=== PATIENT | female | born 1965 | race Caucasian/White ===

== ENCOUNTER 2021-04-26 08:43 | Emergency (ER) | payer BC ==
[~2021-04-26] VITALS: Ht 172.7 cm; Wt 90.0 kg
--- NOTE | 2021-04-26 08:57 | PHYS DOC ---
Past Medical History Past Medical History: No Pertinent History Past Surgical History: No Surgical History Smoking Status: Current Every Day Smoker Alcohol Use: None Drug Use: None General Adult EDM: Chief Complaint: dizzy and soa HPI: HPI: This is a pleasant 55-year-old female who presents emergency department today feeling dizziness for the past 3 days and shortness of breath. She describes her dizziness as a lightheadedness and not vertiginous. Its worse when she moves her head. It is worse when she walks around. She describes her shortness of breath as intermittent and currently her shortness of breath has resolved. She was feeling more short of breath earlier before paramedics had come. She denies unilateral leg swelling or hemoptysis. She denies chest pain. Review of systems negative for neck pain abdominal pain vomiting diaphoresis fevers chills or nuchal rigidity. All other review of systems negative Heart Score: C/O Chest Pain: No Risk Factors: Risk Factors: DM, Current or recent (<one month) smoker, HTN, HLP, family history of CAD, obesity. Risk Scores: Score 0 - 3: 2.5% MACE over next 6 weeks - Discharge Home Score 4 - 6: 20.3% MACE over next 6 weeks - Admit for Clinical Observation Score 7 - 10: 72.7% MACE over next 6 weeks - Early Invasive Strategies Physical Exam: PE: Constitutional: Well developed, well nourished, no acute distress, non-toxic appearance. [] HENT: Normocephalic, atraumatic, bilateral external ears normal, oropharynx moist, no oral exudates, nose normal. [] Eyes: PERRLA, EOMI, conjunctiva normal, no discharge. [] Neck: Normal range of motion, no tenderness, supple, no stridor. [] Cardiovascular:Heart rate regular rhythm, no murmur [] Lungs & Thorax: Bilateral breath sounds clear to auscultation [] no wheezing or crackles. Abdomen: Bowel sounds normal, soft, no tenderness, no masses, no pulsatile masses. [] Skin: Warm, dry, no erythema, no rash. [] Back: No tenderness, no CVA tenderness. [] Extremities: No tenderness, no cyanosis, no clubbing, ROM intact, no edema. [] Neurologic: Mental status: Awake oriented and alert x3 Cranial nerves: Extraocular movements intact, eyebrows pham bilaterally, smile symmetric, uvula elevation nl, shoulder shrug intact bilaterally, tongue protr usion normal. pt has some lateral rotatory nystagmus. No vertical nystagmus. Clear speech. Normal [id number]. Sensation: equal and normal in all extremities Strength: 5/5 in upper and lower extremities bilaterally Psychologic: Affect normal, judgement normal, mood normal. [] EKG: EKG: [] EKG shows sinus rhythm with a regular rate. ST segments show T wave inversions in the high lateral leads. There is mild less than 1 mm elevation in the anterior leads without reciprocal depression. Does not meet STEMI criteria. Nonspecific repolarization abnormalities. ST segment morphology is upwards and concavity. No previous available for comparison. Radiology/Procedures: Radiology/Procedures: [] Course & Med Decision Making: Course & Med Decision Making Pertinent Labs and Imaging studies reviewed. (See chart for details) []blood work had to be sent 2-3 times. on reevaluation pt continues to be dizzy, pt given ativan and zofran. Patient was able to ambulate to the bathroom without any assistance and with a steady normal gait. Blood work is largely unremarkable other than a bilirubin just above the reference range of normal. Head CT and chest x-ray unremarkable. Urinalysis shows dehydration. The patient got IV fluids here in the emergency room. Will encourage her to take oral fluids at home and follow-up with her doctor in 1 to 2 days. Ellen Disclaimer: Ellen Disclaimer: This electronic medical record was generated, in whole or in part, using a voice recognition dictation system. Departure Departure Impression: Primary Impression: Dizzy Disposition: 01 HOME / SELF CARE / HOMELESS Condition: STABLE Patient Instructions: Dizziness Additional Instructions: EMERGENCY DEPARTMENT GENERAL DISCHARGE INSTRUCTIONS Follow-up with your primary physician in 1 to 2 days. Return to the emergency department if you have any new or concerning findings. Thank you for coming to [facility] Emergency Department (ED) today and trusting us with you care. We trust that you had a positive experience in our Emergency Department. If you wish to speak to the department management, you may call the Director at [phone]. Follow up is important in emergency/acute care visits. This condition should be evaluated by your primary care physician and any necessary consulting services for continued management within a few days (1-2) after discharge. Return to the emergency department if you have any new or concerning symptoms including but not limited to fever, chills, nausea, vomiting, intractable pain, any new rashes, chest pain, shortness of breath, uncontrolled bleeding, difficulty breathing, and/or vision loss. 1. Do you have a private Doctor? If you do not have a private doctor, please ask for a resource list of physicians or clinics that may be able to assist you with follow up care. 2. If a lab test or culture has been done and does not come back immediately, your results will be reviewed and you will be notified if you need a change in treatment. 3. Your care today has been supervised by a physician who is specially trained in emergency care. Many problems require more than one evaluation for a complete diagnosis and treatment. We recommend that you schedule your follow up appointment as recommended to ensure complete treatment of you illness or injury. If you are unable to obtain follow up care and continue to have a problem, or if your condition worsens, we recommend that you return to the ED. 4. We are not able to safely determine your condition over the phone nor are we able to give sound medical advice over the phone. For these safety reasons, if you call for medical advice we will ask you to come to the ED for further evaluation. IF YOUR SYMPTOMS WORSEN OR NEW SYMPTOMS DEVELOP, OR YOU HAVE CONCERNS ABOUT YOUR CONDITION; OR IF YOUR CONDITION WORSENS WHILE YOU ARE WAITING FOR YOUR FOLLOW UP APPOINTMENT; EITHER CONTACT YOUR PRIMARY CARE DOCTOR, THE PHYSICIAN WHOSE NAME AND NUMBER YOU WERE GIVEN, OR RETURN TO THE ED IMMEDIATELY. MANUELITO CLARKE MD Apr 26, 2021 08:57
--- NOTE | 2021-04-26 09:14 | RAD ---
INDICATION: Reason: SHORT OF AIR, DIZZINESS / Spl. Instructions: / History: COMPARISON: April 04, 2011 FINDINGS: Single view of chest obtained. Cardiac silhouette is mildly prominent in size. No focal airspace consolidation. IMPRESSION: * No focal airspace consolidation. Electronically signed by: Anjel Pop MD (04/26/2021 9:11 AM) [id number]
[2021-04-26] MEDS ORDERED: MECLIZINE HCL 12.5 MG TABLET. PO ONE (09:15)
--- NOTE | 2021-04-26 09:24 | RAD ---
CT head without contrast dated 04/26/2021. No comparison available. Clinical data indication: Dizziness for a few days. TECHNIQUE: Contiguous axial imaging the head was performed from skull base to vertex. No contrast administered. One or more of the following individualized dose reduction techniques were utilized for this examinat ion: 1. Automated exposure control 2. Adjustment of the mA and/or kV according to patient size 3. Use of iterative reconstruction technique FINDINGS: Ventricles and sulci are mildly prominent for age. No midline shift or mass effect. Brain parenchyma is of normal attenuation. No hemorrhage or extra axial collection. Posterior fossa and brainstem unre markable. Visualized paranasal sinuses and mastoid air cells are clear. No apparent calvarial abnormality. IMPRESSION: 1. No evidence of acute intracranial abnormality. 2. Mild atrophy for age. Electronically signed by: Brayan Levy MD (04/26/2021 9:21 AM) JARRET
[2021-04-26 09:47] LABS: BASO # 0.1 x10^3/uL (0.0-0.2); BASO % 1 % (0-3); EOS # 0.4 x10^3/uL (0.0-0.7); EOS % 4 % (0-3); HEMATOCRIT 53.9 % (36.0-47.0); HEMOGLOBIN 18.8 g/dL (12.0-15.5); LYMPH # 2.4 x10^3/uL (1.0-4.8); LYMPH % 24 % (24-48); MEAN CORPUSCULAR HEMOGLOBIN 34 pg (25-35); MEAN CORPUSCULAR HGB CONC 35 g/dL (31-37); MEAN CORPUSCULAR VOLUME 98 fL (79-100); MONO # 0.7 x10^3/uL (0.0-1.1); MONO % 7 % (0-9); NEUT # 6.3 x10^3/uL (1.8-7.7); NEUT % 64 % (31-73); PLATELET COUNT 195 x10^3/uL (140-400); RED BLOOD COUNT 5.53 x10^6/uL (3.50-5.40); RED CELL DISTRIBUTION WIDTH 14.6 % (11.5-14.5); WHITE BLOOD COUNT 9.9 x10^3/uL (4.0-11.0)
[2021-04-26] MEDS ORDERED: ONDANSETRON PF 4 MG/2 ML VIAL. IV ONE (11:00)
[2021-04-26] MEDS ORDERED: LORazepam 0.5 MG TABLET PO ONE (11:00)
[2021-04-26 11:29] LABS: BILIRUBIN,URINE SMALL (NEG); NITRITE,URINE NEGATIVE (NEG); PROTEIN,URINE NEGATIVE (NEG-TRACE)
[2021-04-26] MEDS ORDERED: IV NORMAL SALINE 1000ML BAG 1,000 ML IV ONE (11:30)
[2021-04-26 11:35] LABS: CLARITY,URINE HAZY; COLOR,URINE YELLOW
--- NOTE | 2021-04-26 11:35 | EKG ---
[facility] [address] [place] [address] Test Date: 2021-04-26 Test Time: 08:50:55 Pat Name: ARNOLD APONTE Department: Room: Gender: F Film Booker: : 1965 Requested By: MANUELITO CLARKE Order Number: [id number] Reading MD: Measurements Intervals [place] Rate: 71 P: 28 AL: 150 QRS: -15 QRSD: 88 T: 87 QT: 390 QTc: 424 Interpretive Statements SINUS RHYTHM LEFT ATRIAL ABNORMALITY LEFTWARD AXIS T ABNORMALITY IN HIGH LATERAL LEADS ABNORMAL ECG RI6.01 No previous ECG available for comparison
[2021-04-26 11:37] LABS: BACTERIA,URINE FEW /HPF (0-FEW); WBC,URINE OCC /HPF (0-4)
[2021-04-26 11:37] LABS: CALCIUM 9.3 mg/dL (8.5-10.1); CREATININE 0.8 mg/dL (0.6-1.0); GFR 74.2; POTASSIUM 5.3 mmol/L (3.5-5.1)
[2021-04-26 11:43] LABS: ALBUMIN 3.9 g/dL (3.4-5.0); DIRECT BILIRUBIN 0.3 mg/dL (0.0-0.2); TOTAL BILIRUBIN 1.1 mg/dL (0.2-1.0); TOTAL PROTEIN 7.2 g/dL (6.4-8.2)
[2021-04-26 12:33] VITALS: BP 172/74
[2021-04-26] MEDS ORDERED: MECL-75 PO (12:33)
== END 2021-04-26 12:40 | disposition home or self-care (01) ==
LOC: ER 08:43
DX: R42 Dizziness and giddiness (principal); R06.02 Shortness of breath; F17.200 Nicotine dependence, unspecified, uncomplicated
CPT/HCPCS: 36415; 70450; 71045; 80048; 80076; 81001; 83690; 83880; 84484; 85025; 85379; 93005; 96361; 96374; 99285; J2405; J7030; J8597